=== PATIENT | female | born 1945 | race Hispanic/Latino ===

== ENCOUNTER 2020-07-15 21:55 | Emergency (ER) | payer MEDICARE ==
[~2020-07-15] VITALS: Ht 167.6 cm; Wt 96.2 kg
[2020-07-15 23:33] VITALS: BP 171/84
== END 2020-07-15 23:38 | disposition home or self-care (01) ==
LOC: ER 22:13
DX: T18.8XXA Foreign body in other parts of alimentary tract, initial encounter (principal); X58.XXXA Exposure to other specified factors, initial encounter; Y92.000 Kitchen of unspecified non-institutional (private) residence as the place of occurrence of the external cause; I10 Essential (primary) hypertension; I48.91 Unspecified atrial fibrillation; E78.5 Hyperlipidemia, unspecified; E03.9 Hypothyroidism, unspecified
CPT/HCPCS: 70360; 71046; 74019; 99283

== ENCOUNTER 2024-04-09 17:13 | Emergency (ER) | payer MEDICARE ==
[~2024-04-09] VITALS: Ht 165.1 cm; Wt 83.9 kg
[~2024-04-09 17:13] MED LIST: ATORVASTATIN CA10 MG PO; BREO ELLIPTA 11 EACH INH; ELIQUIS5 MG PO; GABAPENTIN300 MG PO; LOSARTAN POTASS25 MG PO; METFORMIN HCL500 MG PO; METOPROLOL SUCC25 MG PO; OMEPRAZOLE40 MG PO; PROVENTIL HFA6.7 GM INH; SYNTHROID125 MCG PO
[2024-04-09] MEDS ORDERED: KETOROLAC TROMETHAMINE 30 MG/ML VIAL ONE ×2 (18:03→19:38)
[2024-04-09 18:21] LABS: BASOPHILS % 0.3 % (0.0-1.0); EOSINOPHILS # (AUTO) 0.1 (0.0-0.4); EOSINOPHILS % 1.3 % (0.0-6.0); HEMATOCRIT 37.7 % (34.2-44.1); HEMOGLOBIN 12.2 g/dL (12.0-16.0); LYMPHOCYTES # (AUTO) 1.5 (1.0-3.2); LYMPHOCYTES % 16.1 % (18.0-39.1); MEAN CORPUSCULAR HEMOGLOBIN 31.9 pg (28-32); MEAN CORPUSCULAR HGB CONC 32.4 g/dL (31-35); MEAN CORPUSCULAR VOLUME 98.4 fL (81-99); MONOCYTES # (AUTO) 0.7 (0.2-0.8); MONOCYTES % 7.1 % (4.4-11.3); PLATELET COUNT 207 x10e3/uL (140-360); RED BLOOD COUNT 3.83 x10e6/uL (3.6-5.1); RED CELL DISTRIBUTION WIDTH 13.2 % (11.7-14.4); WHITE BLOOD COUNT 9.36 x10e3/uL (4.8-10.8)
[2024-04-09 18:39] LABS: ALBUMIN 3.6 g/dL (3.5-5.0); ALBUMIN/GLOBULIN RATIO 0.8 (0.8-2.0); ANION GAP 17.7 mmol/L (8-16); BILIRUBIN,TOTAL 0.4 mg/dL (0.2-1.2); CALCIUM 9.7 mg/dL (8.4-10.2); CREATININE, SERUM 0.86 mg/dL (0.57-1.11); POTASSIUM 4.7 mmol/L (3.5-5.1); TOTAL PROTEIN 7.9 g/dL (6.5-8.1)
[2024-04-09 18:46] LABS: CLARITY,URINE SL CLOUDY (CLEAR); COLOR,URINE ORANGE (YELLOW)
[2024-04-09] MEDS ORDERED: IOPAMIDOL 370 MG/ML 100 ML INFUS..BTL INJ ONE (18:51)
[2024-04-09 18:52] LABS: GLUCOSE, URINE 1+ (NEGATIVE); KETONES,URINE NEGATIVE (NEGATIVE); LEUKOCYTE ESTERASE ,URINE LARGE (NEGATIVE); NITRITE,URINE POSITIVE (NEGATIVE); PH,URINE 5.5 (5 - 7); PROTEIN,URINE DIPSTICK 1+ (NEGATIVE)
[2024-04-09 18:53] LABS: BILIRUBIN,URINE 1+ (NEGATIVE)
[2024-04-09] MEDS ORDERED: SODIUM CHLORIDE 0.9% 1000ML 1,000 ML ONE (19:38)
[2024-04-09 19:39] VITALS: PULSE 65; RESP 16; TEMP 98.2; O2SAT 94
[2024-04-09] MEDS: KETOROLAC TROMETHAMINE 30 MG/ML VIAL IV STA (19:39)
[2024-04-09] MEDS: SODIUM CHLORIDE 0.9% 1000ML 1,000 ML IV STA (19:39)
[2024-04-09 19:59] LABS: BACTERIA,URINE RARE /HPF; EPITHELIAL CELLS,URINE FEW /LPF; RBC,URINE 0-5 /HPF (0-5); WBC,URINE (MAN) 0-5 /HPF (0-5)
[2024-04-09] MEDS ORDERED: AMOX TR-K CLV1 EAC2 PO (22:21)
[2024-04-09] MEDS ORDERED: ULTRAM 50MG50 MG PO (22:21)
[2024-04-09] MEDS ORDERED: ONDANSETRON ODT4 MG PO (22:21)
== END 2024-04-09 23:15 | disposition home or self-care (01) ==
LOC: ER 17:21
DX: R10.32 Left lower quadrant pain (principal); N39.0 Urinary tract infection, site not specified; K57.32 Diverticulitis of large intestine without perforation or abscess without bleeding; I51.7 Cardiomegaly
CPT/HCPCS: 36415; 74177; 80053; 81001; 83690; 85025; 99284; J1885; J7030; Q9967

== ENCOUNTER 2024-04-18 11:43 | Emergency (ER) | payer MEDICARE ==
[~2024-04-18] VITALS: Ht 165.1 cm; Wt 83.9 kg
[~2024-04-18 11:43] MED LIST changes: +AMOX TR-K CLV1 EAC2 PO; +ONDANSETRON ODT4 MG PO; +ULTRAM 50MG50 MG PO
[2024-04-18 11:53] VITALS: PULSE 97; RESP 18; TEMP 97.5; O2SAT 97
[2024-04-18] MEDS ORDERED: SODIUM CHLORIDE FLUSH 10 ML SYR IV PRN (12:00)
[2024-04-18 12:27] LABS: BASOPHILS % 0.3 % (0.0-1.0); EOSINOPHILS # (AUTO) 0.1 (0.0-0.4); EOSINOPHILS % 0.6 % (0.0-6.0); HEMATOCRIT 40.8 % (34.2-44.1); HEMOGLOBIN 12.9 g/dL (12.0-16.0); LYMPHOCYTES # (AUTO) 1.7 (1.0-3.2); MEAN CORPUSCULAR HEMOGLOBIN 30.9 pg (28-32); MEAN CORPUSCULAR HGB CONC 31.6 g/dL (31-35); MEAN CORPUSCULAR VOLUME 97.8 fL (81-99); MONOCYTES # (AUTO) 0.6 (0.2-0.8); MONOCYTES % 6.5 % (4.4-11.3); NEUTROPHILS # (AUTO) 7.3 (2.1-6.9); NEUTROPHILS % 75.3 % (38.7-80.0); PLATELET COUNT 236 x10e3/uL (140-360); RED BLOOD COUNT 4.17 x10e6/uL (3.6-5.1); RED CELL DISTRIBUTION WIDTH 13.2 % (11.7-14.4); WHITE BLOOD COUNT 9.73 x10e3/uL (4.8-10.8)
[2024-04-18] MEDS ORDERED: IOPAMIDOL 370 MG/ML 100 ML INFUS..BTL INJ ONE ×2 (12:27→13:03)
[2024-04-18] MEDS ORDERED: DIATRIZOATE MEGL/DIATRIZOA SOD 30 ML BTL PO ONE (12:27)
[2024-04-18 12:47] LABS: ALBUMIN 3.9 g/dL (3.5-5.0); ALBUMIN/GLOBULIN RATIO 0.9 (0.8-2.0); ANION GAP 16.8 mmol/L (8-16); BILIRUBIN,TOTAL 0.8 mg/dL (0.2-1.2); CALCIUM 10.3 mg/dL (8.4-10.2); CREATININE, SERUM 0.88 mg/dL (0.57-1.11); POTASSIUM 3.8 mmol/L (3.5-5.1); TOTAL PROTEIN 8.4 g/dL (6.5-8.1)
[2024-04-18 13:09] LABS: BILIRUBIN,URINE NEGATIVE (NEGATIVE); CLARITY,URINE CLEAR (CLEAR); COLOR,URINE YELLOW (YELLOW); GLUCOSE, URINE NEGATIVE (NEGATIVE); KETONES,URINE TRACE (NEGATIVE); LEUKOCYTE ESTERASE ,URINE NEGATIVE (NEGATIVE); NITRITE,URINE NEGATIVE (NEGATIVE); PH,URINE 6 (5 - 7); PROTEIN,URINE DIPSTICK 1+ (NEGATIVE); URINE UROBILINOGEN 0.2 mg/dL (0.2 - 1)
[2024-04-18 13:12] LABS: BACTERIA,URINE FEW /HPF; EPITHELIAL CELLS,URINE FEW /LPF; RBC,URINE 0-5 /HPF (0-5); WBC,URINE (MAN) 0-5 /HPF (0-5)
[2024-04-18] MEDS ORDERED: DICYCLOMINE HCL20 MG PO (14:50)
[2024-04-18] MEDS: ONDANSETRON HCL 4 MG ORAL DISINTEGRATING TAB PO ONE (15:02)
[2024-04-18] MEDS: HYDROCODONE/APAP 5MG-325MG TAB PO ONE (15:03)
== END 2024-04-18 15:14 | disposition home or self-care (01) ==
LOC: ER 11:49
DX: R10.32 Left lower quadrant pain (principal); K57.32 Diverticulitis of large intestine without perforation or abscess without bleeding; E11.65 Type 2 diabetes mellitus with hyperglycemia; I10 Essential (primary) hypertension; K76.0 Fatty (change of) liver, not elsewhere classified; E78.5 Hyperlipidemia, unspecified; I48.91 Unspecified atrial fibrillation; E03.9 Hypothyroidism, unspecified
CPT/HCPCS: 36415; 74177; 80053; 81001; 85025; 99284; Q0162; Q9963; Q9967

== ENCOUNTER 2024-06-15 19:36 | Emergency (ER) | payer MEDICARE ==
[~2024-06-15] VITALS: Ht 165.1 cm; Wt 83.9 kg
[~2024-06-15 19:36] MED LIST changes: +DICYCLOMINE HCL20 MG PO
[2024-06-15 20:10] VITALS: TEMP 97.6
[2024-06-15 20:45] VITALS: PULSE 79; RESP 18
[2024-06-15 21:52] VITALS: BP_SYST 137; PULSE 73; RESP 18; TEMP 98.3; O2SAT 99
== END 2024-06-15 21:30 | disposition home or self-care (01) ==
LOC: FSED 19:46
DX: S92.415A Nondisplaced fracture of proximal phalanx of left great toe, initial encounter for closed fracture (principal); S00.83XA Contusion of other part of head, initial encounter; M25.512 Pain in left shoulder; M25.562 Pain in left knee; W01.0XXA Fall on same level from slipping, tripping and stumbling without subsequent striking against object, initial encounter; Y93.01 Activity, walking, marching and hiking; Y92.89 Other specified places as the place of occurrence of the external cause; I10 Essential (primary) hypertension; E11.9 Type 2 diabetes mellitus without complications; E78.5 Hyperlipidemia, unspecified; I48.91 Unspecified atrial fibrillation; E03.9 Hypothyroidism, unspecified; Z96.653 Presence of artificial knee joint, bilateral
CPT/HCPCS: 70450; 99283

== ENCOUNTER 2024-07-29 19:12 | Emergency (ER) | payer MEDICARE ==
[~2024-07-29] VITALS: Ht 167.6 cm; Wt 94.8 kg
[2024-07-29 19:22] VITALS: PULSE 84; RESP 18; TEMP 96.6
[2024-07-29] MEDS: METHYLPREDNISOLONE SOD SUCC 125 MG/2ML VIAL IV ONE (20:12)
[2024-07-29] MEDS ORDERED: PREDNISONE20 MG PO (20:42)
[2024-07-29] MEDS ORDERED: EPINEPHRIN0.3 MG/0.3 IM (20:53)
[2024-07-29] MEDS: DIPHENHYDRAMINE HCL INJ 50 MG/ML VIAL IV ONE (21:00)
[2024-07-29] MEDS: FAMOTIDINE 20 MG/2 ML VIAL IV STA (21:00)
[2024-07-29 21:10] VITALS: BP 170/75; PULSE 82; RESP 18; TEMP 97; O2SAT 96
== END 2024-07-29 21:10 | disposition home or self-care (01) ==
LOC: FSED 19:25
DX: L50.0 Allergic urticaria (principal); I10 Essential (primary) hypertension; E11.9 Type 2 diabetes mellitus without complications; I48.91 Unspecified atrial fibrillation; E78.5 Hyperlipidemia, unspecified; E03.9 Hypothyroidism, unspecified; Z87.19 Personal history of other diseases of the digestive system; Z96.653 Presence of artificial knee joint, bilateral
CPT/HCPCS: 96374; 96375; 99282